=== PATIENT | male | born 1935 | race Caucasian/White ===

== ENCOUNTER 2017-05-15 09:16 | Outpatient (CLI) | payer MEDICARE ==
[2017-05-15] MEDS ORDERED: IOPAMIDOL-300 100 ML VIAL IVP ONE (11:51)
--- NOTE | 2017-05-15 14:13 | CT Report ---
CT OF THE ABDOMEN AND PELVIS WITH AND WITHOUT CONTRAST: 05/15/2017 CLINICAL INDICATION: Hematuria, urinary incontinence. TECHNIQUE: Axial CT images of the abdomen and pelvis were obtained prior to and following 100 mL of Isovue-300 intravenously, using split bolus protocol. No previous CT is available for comparison. FINDINGS: Limited evaluation of the lung bases is unremarkable. ABDOMEN: On the unenhanced images, there is no evidence of nephrolithiasis or hydronephrosis. The kidneys demonstrate symmetric uptake and excretion of contrast. No solid renal mass or collecting system abnormality is identified. Peripelvic cysts and cortical cysts are noted. Allowing for phase of contrast enhancement, the liver, spleen, pancreas, and adrenal glands appear unremarkable. No bowel dilatation, free gas, or free fluid is present. The gallbladder is not dilated. PELVIS: There is a left inguinal hernia. Sigmoid diverticulosis is present, without CT evidence of diverticulitis. No distal hydroureter or ureterolithiasis is appreciated. The urinary bladder appears unremarkable. Multiple brachytherapy seeds are noted in the prostate bed. The osseous structures demonstrate degenerative changes. IMPRESSION: 1. NO EVIDENT ETIOLOGY FOR PATIENT'S HEMATURIA. 2. LEFT INGUINAL HERNIA. 3. DIVERTICULOSIS, WITHOUT CT EVIDENCE OF DIVERTICULITIS. In accordance with CT protocol optimization, one or more of the following dose reduction techniques were utilized for this exam: automated exposure control, adjustment of mA and/or KV based on patient size, or use of iterative reconstructive technique. JOB #: [id number] EXT JOB #: [id number] NELLY
== END 2017-05-15 09:17 | disposition home or self-care (01) ==
LOC: LAB 09:16
PROVIDERS: ATTEND Nurse Practitioner Family
DX: R31.9 Hematuria, unspecified (principal); R32 Unspecified urinary incontinence; K40.90 Unilateral inguinal hernia, without obstruction or gangrene, not specified as recurrent; K57.30 Diverticulosis of large intestine without perforation or abscess without bleeding; N48.89 Other specified disorders of penis; I10 Essential (primary) hypertension
CPT/HCPCS: 36415; 74178; 82565; Q9967

== ENCOUNTER 2017-06-14 09:05 | Outpatient (CLI) | payer MEDICARE | END 2017-06-14 09:06 | disposition home or self-care (01) | LOC: RT.S 09:05 | PROVIDERS: ATTEND Registered Nurse | DX: Z01.810 Encounter for preprocedural cardiovascular examination (principal) | CPT/HCPCS: 93005 ==

== ENCOUNTER 2017-06-17 16:09 | Emergency (ER) | payer MEDICARE ==
[2017-06-17 17:57] LABS: BILIRUBIN,URINE NEGATIVE (NEGATIVE); PH,URINE 5.5 PH (5.0-7.5)
[2017-06-17 18:00] LABS: UA w/ MICROSCOPIC CHARGE YES
[2017-06-17 18:09] LABS: UR CULTURE IF IND NOT INDICATED; WBC,URINE 0-3 /HPF (0-3)
--- NOTE | 2017-06-17 18:22 | ED Physician Documentation ---
History of Present Illness - Stated complaint Stated Complaint: MALE - Chief complaint Chief Complaint: General - Additonal information Additional information: hx from pt 81 male hx prostate ca txed with implant seed recent cystoscopy showed scar tisse which was fixed, he had a catheter which was subsequently removed 06/03, now has urinary retention no fever NV back pain Review of Systems Constitutional: denies: Fever, Chills GI: reports: Abdominal Pain (bladder) : reports: Unable to Void Musculoskeletal: denies: Back pain PD PAST MEDICAL HISTORY - Past Medical History Past Medical History: Yes Other Past Medical History: Prostate CA with seed treatment, retention related scar tissue. - Past Surgical History Past Surgical History: No HEENT: Tonsil/Adenoidectomy - Present Medications Home Medications: Ambulatory Orders Medication Instructions Recorded Confirmed Lisinopril/Hydrochlorothiazide 0 mg PO DAILY 06/17/17 06/17/17 [Lisinopril-Hctz 20-12.5 mg Tab] Simvastatin 0 mg PO DAILY 06/17/17 06/17/17 - Allergies Allergies/Adverse Reactions: Allergies Allergy/AdvReac Type Severity Reaction Status Date / Time No Known Drug Allergies Allergy Verified 06/17/17 16:15 - Social History Does the pt smoke?: No Smoking Status: Never smoker Does the pt drink ETOH?: Yes Does the pt have substance abuse?: No - Immunizations Immunizations are current?: Yes PD ED PE NORMAL - Vitals Vital signs reviewed: Yes - Cardiac Cardiac: RRR - Respiratory Respiratory: No respiratory distress, Clear bilaterally - Abdomen Abdomen: Soft, Non tender - Male Male : Other (catheter placed by nursing, draining clear yellow urine, ) Results - Vitals Vitals: Vital Signs - 24 hr 06/17/17 16:11 Temperature 36.5 C Heart Rate 98 Respiratory 17 Rate Blood Pressure 170/94 H O2 Saturation 99 Oxygen O2 Source Room air - Labs Labs: Laboratory Tests 06/17/17 17:46 Urine Color YELLOW Urine Clarity CLEAR Urine pH 5.5 Ur Specific [place] >=1.030 H Urine Protein NEGATIVE Urine Glucose (UA) NEGATIVE Urine Ketones TRACE Urine Occult Blood LARGE H Urine Nitrite NEGATIVE Urine Bilirubin NEGATIVE Urine Urobilinogen 0.2 (NORMAL) Ur Leukocyte Esterase NEGATIVE Urine RBC 11-25 H Urine WBC 0-3 Ur Squamous Epith Cells NONE SEEN Urine Bacteria None Seen Ur Microscopic Review INDICATED Urine Culture Comments NOT INDICATED Departure - Departure Disposition: 01 Home, Self Care Clinical Impression: Urinary retention Condition: Good Instructions: ED Retention Urinary Male, ED Catheter Care [place] Comments: Please follow up with your urologist this week to determine when the catheter can come out And please folow up with your PMD to recheck your blood pressure - it was high today
[2017-06-17 18:53] VITALS: BP 131/81
== END 2017-06-17 18:51 | disposition home or self-care (01) ==
LOC: ED 16:09
DX: R33.9 Retention of urine, unspecified (principal); Z85.46 Personal history of malignant neoplasm of prostate
CPT/HCPCS: 51702; 51798; 81001; 81003; 87086; 99283

== ENCOUNTER 2017-08-08 09:43 | Emergency (ER) | payer MEDICARE ==
[2017-08-08 10:35] LABS: BASOPHILS % (AUTO) 0.2 %; HCT - HEMATOCRIT 42.1 % (42.0-52.0); HGB - HEMOGLOBIN 14.4 g/dL (14.0-18.0); LYMPHOCYTES # (AUTO) 1.3 10^3/uL (1.5-3.5); MEAN CORPUSCULAR HEMOGLOBIN 30.4 pg (27.0-31.0); MEAN CORPUSCULAR HGB CONC 34.2 g/dL (32.0-36.0); MEAN CORPUSCULAR VOLUME 88.6 fL (80.0-94.0); MEAN PLATELET VOLUME 9.6 fL (7.4-11.4); MONOCYTES # (AUTO) 2.4 10^3/uL (0.0-1.0); NEUTROPHILS # (AUTO) 18.4 10^3/uL (1.5-6.6); NEUTROPHILS % (AUTO) 82.8 %; RED BLOOD COUNT 4.75 10^6/uL (4.70-6.10); RED CELL DISTRIBUTION WIDTH 13.3 % (12.0-15.0); UNCORRECTED WHITE BLOOD COUNT 22.2 x10^3/uL; WHITE BLOOD COUNT 22.2 x10^3/uL (4.8-10.8)
[2017-08-08 10:43] LABS: ALBUMIN/GLOBULIN RATIO 0.9 (1.0-2.2); BILIRUBIN,TOTAL 1.5 mg/dL (0.2-1.0); CALCIUM 8.7 mg/dL (8.5-10.3); CREATININE 1.1 mg/dL (0.6-1.2); POTASSIUM 3.1 mmol/L (3.5-5.0); TOTAL PROTEIN 7.3 g/dL (6.7-8.2)
[2017-08-08 10:46] LABS: PH,URINE 5.5 PH (5.0-7.5)
[2017-08-08 11:04] LABS: BILIRUBIN,URINE NEGATIVE (NEGATIVE); UA w/ MICROSCOPIC CHARGE YES
[2017-08-08 11:05] LABS: WBC,URINE >25 /HPF (0-3)
[2017-08-08 11:06] LABS: UR CULTURE IF IND INDICATED
[2017-08-08 11:21] LABS: NP AUTO DIFFERENTIAL? NO; NP MAN DIFFERENTIAL? YES
[2017-08-08 12:30] VITALS: BP 130/71
--- NOTE | 2017-08-08 12:41 | ED Physician Documentation ---
PD HPI ABD PAIN - Stated complaint Stated Complaint: WEAKNESS/DIZZY - Chief complaint Chief Complaint: General - History obtained from History obtained from: Patient - History of Present Illness Timing - onset: Today - Additional information Additional information: The patient is an 82-year-old male who presents to the emergency department because of bright red blood per rectum this morning, with streaks of bright red blood on his toilet paper. He denies any rectal pain. He denies history of similar symptoms in the past. He does report lower abdominal discomfort and frequency of urination. He denies dysuria. He has a history of urinary retention for which he has been self catheterizing for the past 2 months. He does not take anticoagulant medication except for one baby aspirin daily. Review of Systems Constitutional: denies: Fever Ears: denies: Tinnitus/ringing Nose: denies: Congestion Throat: denies: Sore throat Cardiac: denies: Chest pain / pressure Respiratory: denies: Dyspnea, Cough GI: reports: Abdominal Pain (Mild lower abdominal pain.). denies: Nausea, Vomiting : reports: Frequency, Other (Self catheterizes.). denies: Dysuria Skin: denies: Rash Musculoskeletal: denies: Back pain, Extremity swelling Neurologic: denies: Focal weakness, Numbness, Headache PD PAST MEDICAL HISTORY - Past Medical History Cardiovascular: Hypertension, High cholesterol Endocrine/Autoimmune: None : Retention Other Past Medical History: prostate cancer - Past Surgical History Past Surgical History: No HEENT: Tonsil/Adenoidectomy - Present Medications Home Medications: Ambulatory Orders Medication Instructions Recorded Confirmed Lisinopril/Hydrochlorothiazide 0 mg PO DAILY 06/17/17 08/08/17 [Lisinopril-Hctz 20-12.5 mg Tab] Simvastatin 0 mg PO DAILY 06/17/17 08/08/17 Cephalexin 500 mg PO TID #20 tablet 08/08/17 - Allergies Allergies/Adverse Reactions: Allergies Allergy/AdvReac Type Severity Reaction Status Date / Time No Known Drug Allergies Allergy Verified 06/17/17 16:15 - Social History Does the pt smoke?: No Smoking Status: Never smoker Does the pt drink ETOH?: Yes ETOH Use: Wine Does the pt have substance abuse?: No - Immunizations Immunizations are current?: Yes PD ED PE NORMAL - Vitals Vital signs reviewed: Yes (normal) - General General: Alert and oriented X 3, Well developed/nourished - HEENT HEENT: Atraumatic, Moist mucous membranes, Pharynx benign - Neck Neck: No adenopathy, No JVD - Cardiac Cardiac: RRR, No murmur - Respiratory Respiratory: No respiratory distress, Clear bilaterally - Abdomen Abdomen: Normal bowel sounds, Soft, No organomegaly, Other (Mild suprapubic tenderness to palpation, without rebound tenderness or guarding.) - Rectal Rectal: Other (Brown, heme-negative stool.) - Back Back: No CVA TTP - Derm Derm: No rash - Extremities Extremities: No edema, No calf tenderness / cord - Neuro Neuro: Alert and oriented X 3, No motor deficit, No sensory deficit, Normal speech PD ED PE EXPANDED - Rectal Rectal: Heme Occult Neg - QC+ Results - Vitals Vitals: Oxygen O2 Source Room air - Labs Labs: Microbiology 08/08/17 10:36 Urine Culture - Final Urine,Random >100,000 COLONIES/ML Polymicrobial growth including potential pathogens. This is suggestive of skin or other contamination. Laboratory Tests 08/08/17 08/08/17 08/08/17 10:20 10:20 10:36 WBC 22.2 H RBC 4.75 Hgb 14.4 Hct 42.1 MCV 88.6 MCH 30.4 MCHC 34.2 RDW 13.3 Plt Count 207 MPV 9.6 Neut # 18.4 H Lymph # 1.3 L [place] # 2.4 H Eos # 0.0 Baso # 0.0 Absolute Nucleated RBC 0.01 Band Neuts % (Manual) Not Reportable Nucleated RBCs 0.0 Differential Comment MANUAL=AUTO DIFF Sodium 134 L Potassium 3.1 L Chloride 98 L Carbon Dioxide 24 Anion Gap 12.0 BUN 19 Creatinine 1.1 Estimated GFR (MDRD) 64 L Glucose 127 H Calcium 8.7 Total Bilirubin 1.5 H AST 22 ALT 23 Alkaline Phosphatase 43 Total Protein 7.3 Albumin 3.5 Globulin 3.8 Albumin/Globulin Ratio 0.9 L Lipase 23 Urine Color YELLOW Urine Clarity HAZY Urine pH 5.5 Ur Specific [place] 1.025 Urine Protein TRACE Urine Glucose (UA) NEGATIVE Urine Ketones TRACE Urine Occult Blood LARGE H Urine Nitrite NEGATIVE Urine Bilirubin NEGATIVE Urine Urobilinogen 0.2 (NORMAL) Ur Leukocyte Esterase SMALL H Urine RBC TNTC H Urine WBC >25 H Urine WBC Clumps PRESENT Ur Epithelial Cells FEW Renal Tubular Ur Squamous Epith Cells RARE Squamous Urine Bacteria Many H Urine Mucus Marked Strands Ur Microscopic Review INDICATED Urine Culture Comments INDICATED PD MEDICAL DECISION MAKING - ED course Complexity details: reviewed old records, reviewed results, re-evaluated patient , considered differential, d/w patient, d/w family ED course: The patient's presentation is most consistent with acute cystitis. His presentation does not suggest pyelonephritis nor sepsis, despite a markedly elevated white blood cell count 22.2. His rectal exam reveals brown heme- negative stool, so I am not certain that he had blood per rectum this morning as was his initial complaint. An internal hemorrhoid could present with transient bright red blood streaking on toilet paper. However given the patient 's acute cystitis with red blood cells too numerous to count, I suspect hematuria as the more likely cause of the blood he noticed this morning. Treatment in the emergency department included administration of levofloxacin 500 mg IV. He is being discharged with a prescription for cephalexin. I discussed with him and his daughter the expected course of illness, antibiotic treatment and outpatient follow-up, as well as potentially worrisome signs or symptoms that should prompt reevaluation in the emergency department. Departure - Departure Disposition: Home, Self Care Clinical Impression: UTI (urinary tract infection) Qualifiers: Urinary tract infection type: acute cystitis Hematuria presence: with hematuria Qualified Code(s): N30.01 - Acute cystitis with hematuria Condition: Stable Instructions: ED UTI Cystitis Male Follow-Up: Dione Johnson ARNP [Primary Care Provider] - Prescriptions: Cephalexin 500 mg PO TID #20 tablet Comments: Drink plenty of fluids, including cranberry juice. Take cephalexin 3 times daily as prescribed. You can use Tylenol as needed for fever or discomfort. Follow up with your primary physician within 1 to 2 weeks. Call to schedule appointment. Return to the emergency department if you develop increasing abdominal pain, fever with shaking chills, persistent vomiting, or otherwise worsening symptoms. Discharge Date/Time: 08/08/17 12:52
== END 2017-08-08 12:52 | disposition home or self-care (01) ==
LOC: ED 09:43
DX: N30.01 Acute cystitis with hematuria (principal); D72.829 Elevated white blood cell count, unspecified; I10 Essential (primary) hypertension; E78.00 Pure hypercholesterolemia, unspecified; Z85.46 Personal history of malignant neoplasm of prostate
CPT/HCPCS: 36415; 80053; 81001; 81003; 83690; 85025; 87086; 96365; 99283

== ENCOUNTER 2018-04-29 08:52 | Outpatient (CLI) | payer MEDICARE ==
--- NOTE | 2018-04-29 11:15 | XRAY Report ---
Procedure Date: 04/29/2018 Accession Number: [id number] / [id number] Procedure: XRS - Foot 3 View LT CPT Code: FULL RESULT: EXAM: Foot 3 View LT DATE: 04/29/2018 9:23 AM CLINICAL HISTORY: L MTP PAIN COMPARISON: None TECHNIQUE: 3 view left foot FINDINGS: AP, lateral, oblique views of the left foot demonstrate osteoarthritic changes of the first metatarsophalangeal joint, severe. Plantar calcaneal spurring is present. There is no evidence of acute fracture or dislocation. No foreign body is seen in the soft tissues. 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 No evidence of fracture.
== END 2018-04-29 08:53 | disposition home or self-care (01) ==
LOC: DI.S 08:52
PROVIDERS: ATTEND Registered Nurse
DX: M19.072 Primary osteoarthritis, left ankle and foot (principal)